=== PATIENT | female | born 1970 | race Caucasian/White ===

== ENCOUNTER 2024-03-18 12:43 | Emergency (ER) | payer BC, SELFPAY ==
[2024-03-18 12:47] VITALS: BP 133/82
--- NOTE | 2024-03-18 15:16 | ED.MUSCINJ ---
HPI-Injury
General
Chief Complaint: Musculo-Skeletal Complaint
Source: patient
Exam Limitations: none
Time Seen by Provider: 03/18/24 15:04
Nursing documentation reviewed up to this point in time: agreed with
History of Present Illness-Injury
Is this injury a work related problem?: No
Is pt an associate of [facility]/[place]?: No
Initial Injury comments:
Patient states she felt a pop in lower ant right ribs a few days ago while stretching. Pain continues to worsen. Taking ibu without improvement. Brought to ED by family for eval.
Past History
Past History
ED Past Medical History: None
ED Past Surgical History: None
Social History
Tobacco: Non-smoker
Personal:
Living: with family
Employment: Employed
Review of Systems
Review of Systems
Allergies reviewed?: Yes
All Other Systems: ROS reviewed and negative except as documented in HPI and ROS
Constitutional: Reports no symptoms
EENT: Reports no symptoms
Cardiac: Reports no symptoms
ABD/GI: Reports no symptoms
Musculoskeletal: Reports joint pain (pain to right lower ant. ribs)
Skin: Reports no symptoms
Neurological: Reports no symptoms
Psychiatric: Reports no symptoms
Musculoskeletal Injury Exam
Musculoskeletal Injury Exam
Right Lower Anterior Ribs:
Pain with Movement?: Moderate
Tender to palpation?: Moderate
Soft tissue swelling?: None
External deformity and angulation?: None
Joint effusion?: None
Contusion?: None
Hematoma-local bleeding into tissue?: None
Strain- Sprain- Tear (Connective tissue injury)?: Moderate
Crepitus with movement?: No
Joint instability?: No
Malalignment/deformity?: No
Range of motion: Limited
Distal skin color and temperature: normal-warm & good color
Capillary Refill: normal
Normal distal neurovascular exam?: Yes
Phy Exam
General Physical Exam
General Presentation: well appearing and mild distress
General age: appears stated age
General Skin: warm and dry
General Habitus: normal
General Mental: alert
Cardiovascular Exam
Cardiovascular Exam: regular rate/rhythm
Pulmonary Exam
Pulmonary Exam: lungs clear and no respiratory distress
Gastrointestinal Exam
Gastrointestinal Exam: non tender and soft
Musculoskeletal Exam
Musculoskeletal Exam: neuro vasc intact
Skin Exam
Skin Exam: normal color, warm/dry and no rash
Psychiatric Exam
Psychiatric Exam: normal mood/affect
Injury Course
Orders/Labs/Results
Orders:
Orders
03/18/24 12:55
CR Ribs-right 3 Vw W/pa Chest* Urgent
Comment:
Reason For Exam: lower anterior rib pain
03/18/24 15:11
Hydrocodone 5/APAP 325 [[place] 5/325] 1 tablet PO NOW STA
*Radiology
Radiology exam reviewed: radiology read reviewed
*Pulse Oximetry
Patient hypoxic: no
*Critical Care Note
Total Time (30-74mins, 75-104mins- exclusive of procedures): Not Applicable
ED Attending Note
-
Portions of this chart may have been created with voice recognition software.� Occasional wrong word or��sound alike� substitutions may have occurred due to the inherent limitations of voice recognition software.
Discharge Plan
Departure
Patient Disposition: Home (Routine Discharge)
Date of Disposition: 03/18/24
Time of Disposition: 15:12
Patient with high blood pressure during this ER visit?: No
Condition: Good
Covid-19: Not Applicable
Discharge Problem:
Strain of chest wall
Instructions: Ibuprofen, Using Cold for Pain, Musculoskeletal Pain
Prescriptions:
New
oxycodone 5 mg capsule
5 mg PO Q4H PRN (Reason: Pain) Qty: 12 0RF
No Action
bupropion HCl 150 MG tablet extended release 24 hr
150 mg PO DAILY
Loestrin
1 tab PO DAILY
Referrals:
Juana Nguyen CRNP [Family Provider] - Follow up in 2-3 days
Interventions
Interventions:
*General Assessment Last Done: 03/18/24 12:52
*ED COVID-19 Vaccine History Last Done: 03/18/24 12:52
Discharge Date and Time
Print Language: INDONESIAN
[2024-03-18] MEDS: NORCO 5/325 1 TABLET PO (15:45)
== END 2024-03-18 15:51 | disposition home or self-care (01) ==
LOC: EMR 12:43
PROVIDERS: EMERGENCY PHYSICIAN Emergency Medicine; FAMILY PHYSICIAN Nurse Practitioner Adult Health
DX: S29.011A Strain of muscle and tendon of front wall of thorax, initial encounter (principal); X58.XXXA Exposure to other specified factors, initial encounter
CPT/HCPCS: 99283; 71101

== ENCOUNTER 2024-05-08 02:41 | Emergency (ER) | payer BC, SELFPAY ==
[2024-05-08 02:52] VITALS: BP 106/70
--- NOTE | 2024-05-08 03:40 | EDRN ---
and pt developed severe pain at 1999. Pt tearful and holding leg up.
[2024-05-08 05:20] VITALS: BP 113/81
--- NOTE | 2024-05-08 05:25 | ED.GENMED ---
History of Present Illness
General
Chief Complaint: Post Operative Problem(s)
Source: patient
Exam Limitations: none
Time Seen by Provider: 05/08/24 04:21
Nursing documentation reviewed up to this point in time: agreed with
History of Present Illness
History of Present Illness:
53-year-old female with history as documented presents to the emergency room for evaluation of right leg pain. Patient had bunionectomy 2 weeks ago had been in a splint and then earlier today was placed in a cast. She says that immediately after
the cast was placed she was having some discomfort in the leg and that as the day went on she was having worse pain and so she came to the emergency room to be evaluated. She feels the cast is too tight. She denies any other issues. Surgery was
done by podiatry at [facility].
Past History
Past History
ED Past Medical History: None
ED Past Surgical History: None
Social History
Tobacco: Non-smoker
Personal:
Living: with family
Employment: Employed
Review of Systems
Review of Systems
All Other Systems: ROS reviewed and negative except as documented in HPI and ROS
Musculoskeletal: Reports muscle pain (Right leg pain)
Phy Exam
Physical Exam
Physical Exam:
General: Well appearing and non-toxic
HEENT: protecting airway
Neck: appears supple
CV: No evidence of cyanosis
Resp: No accessory muscle use
Abd: Non-distended
Extremities: Right lower leg is in a cast; toes are visible and they are pink, brisk capillary refill, warm and well-perfused
Neuro: Alert
Psych: Normal affect
Skin: Intact
Scores
Heart Failure Risk
Heart Failure Risk Score: Not Applicable
Heart Score for Chest Pain Patients
STEMI patient?: Not applicable
Withdrawal Assessment of Alcohol
Withdrawal Assessment Completed?: Not applicable
Course
Vital Signs
Initial and Last Documented VS:
Initial Vital Signs
Temp Pulse Resp BP Pulse Ox
36.7 C 84 22 106/70 98
05/08/24 02:52 05/08/24 02:52 05/08/24 02:52 05/08/24 02:52 05/08/24 02:52
Last Documented Vital Signs
Temp Pulse Resp BP Pulse Ox
36.7 C 84 22 106/70 98
05/08/24 02:52 05/08/24 02:52 05/08/24 02:52 05/08/24 02:52 05/08/24 02:52
Procedures
Splinting/Sling Placement
Right Lower Leg:
Procedure completed by: Lencho Robertson MD
Pre-splint extermity exam: neurovascular intact
Type of splint: posterior short leg
Splint material: fiberglass
Splint checked by provider?: Yes
Normal distal neurovascular exam?: Yes
MDM/Problems Addressed
Differential Diagnosis Includes:
cast pain
MDM/Problems Addressed:
53-year-old female who had a bunionectomy and is now in a cast that was placed earlier today presents for pain in the right leg�she feels that the cast is too tight. Vitals normal. Cast was removed here in the emergency room with immediate
resolution of her pain. No signs of vascular compromise. Placed in a splint by me. Will follow-up in the office for recasting.
*Pulse Oximetry
Patient hypoxic: no
*Critical Care Note
Total Time (30-74mins, 75-104mins- exclusive of procedures): Not Applicable
Data Reviewed
Source: patient and spouse
ED Attending Note
-
Portions of this chart may have been created with voice recognition software.� Occasional wrong word or��sound alike� substitutions may have occurred due to the inherent limitations of voice recognition software.
Discharge Plan
Departure
Patient Disposition: Home (Routine Discharge)
Date of Disposition: 05/08/24
Time of Disposition: 05:03
Patient with high blood pressure during this ER visit?: No
Discharge Problem:
Cast discomfort
Instructions: Splint Care
Prescriptions:
No Action
bupropion HCl 150 MG tablet extended release 24 hr
150 mg PO DAILY
Loestrin
1 tab PO DAILY
oxycodone 5 mg capsule
5 mg PO Q4H PRN (Reason: Pain) Qty: 12 0RF
Referrals:
Juana Nguyen CRNP [Family Provider] -
Activity Restrictions/Additional Instructions:
You should follow-up with your surgeon tomorrow as we discussed.
Thank you for visiting the Emergency Department at [facility].
1. Please schedule a follow up appointment as directed. Call first thing tomorrow morning to make an appointment.
2. If indicated, please take your medications as instructed and indicated on discharge paperwork.
3. If any of your symptoms do not improve, or persist, or become more severe within 6-12 hours, please return to the emergency department for further care.
4. Please return to the emergency department if you develop a headache, neck pain/stiffness, fever greater than 100.4F, chest pain, shortness of breath, persistent nausea, vomiting, slurred speech, difficulty walking, numbness/tingling, weakness,
signs of infection or any other symptoms that are worrisome to you.
Please call [phone] if you have any questions.
Interventions
Interventions:
*Risk Screen - Suicide Last Done: 05/08/24 02:52
*General Assessment Last Done: 05/08/24 03:32
*Neglect/Abuse Screening Last Done: 05/08/24 02:52
ED- Fall Risk Assessment Last Done: 05/08/24 03:32
*ED COVID-19 Vaccine History Last Done: 05/08/24 03:32
ED-Musculoskeletal Assessment Last Done: 05/08/24 03:32
ED-Skin Assessment Last Done: 05/08/24 03:32
Discharge Date and Time
Print Language: MACANESE
== END 2024-05-08 05:20 | disposition home or self-care (01) ==
LOC: EMR 02:41
PROVIDERS: EMERGENCY PHYSICIAN Emergency Medicine; FAMILY PHYSICIAN Nurse Practitioner Adult Health
DX: Z46.89 Encounter for fitting and adjustment of other specified devices (principal)
CPT/HCPCS: 99282; 29515

== ENCOUNTER 2024-09-20 11:53 | Emergency (ER) | payer BC, SELFPAY ==
[2024-09-20 12:01] VITALS: BP 120/88
--- NOTE | 2024-09-20 14:04 | ED.GENMED ---
History of Present Illness
General
Chief Complaint: DVT/Possible Blood Clot
Time Seen by Provider: 09/20/24 13:28
History of Present Illness
History of Present Illness:
53-year-old female presents to the emergency department for evaluation of left leg pain beginning yesterday. She is approximately 3-month status post left bunionectomy and had her cast replaced on Tuesday. Had no pain prior to that cast placement.
She is nonweightbearing at this time. Pain radiates from the left upper buttock down the posterior leg to the calf. Denies any leg swelling but feels paresthesias occasionally
Past History
Past History
ED Past Medical History: None
ED Past Surgical History: None
Social History
Tobacco: Non-smoker
Personal:
Living: with family
Employment: Employed
Review of Systems
Review of Systems
Allergies reviewed?: Yes
All Other Systems: ROS reviewed and negative except as documented in HPI and ROS
Phy Exam
Physical Exam
Physical Exam:
GEN: Well appearing, NAD, WDWN
HEENT: Oral mucosa moist, no scleral icterus
Cardiac: Regular rate
Lung: No respiratory distress, no tachypnea
MSK: No gross deformity or injuries. No lower extremity edema. There is pain with straight leg raise on the left as well as with palpation of the left upper gluteal region at the left hamstring, no skin changes
Skin: Good color, no pallor or jaundice, no rashes
Neuro: AO x3, moves all extremities freely
Psych: Calm, cooperative
Course
Orders/Labs/Results
Orders:
Orders
09/20/24 12:04
US Periph Venous LOWER Ext LT Urgent
Reason For Exam: pain, possible DVT
09/20/24 13:58
Cyclobenzaprine HCl [Flexeril] 10 mg PO NOW STA
Ketorolac [Toradol] 30 mg IM NOW STA
Vital Signs
Initial and Last Documented VS:
Initial Vital Signs
Temp Pulse Resp BP Pulse Ox
98.0 F 118 18 120/88 98
09/20/24 12:01 09/20/24 12:01 09/20/24 12:01 09/20/24 12:01 09/20/24 12:01
Last Documented Vital Signs
Temp Pulse Resp BP Pulse Ox
98.0 F 118 18 120/88 98
09/20/24 12:01 09/20/24 12:01 09/20/24 12:01 09/20/24 12:01 09/20/24 12:01
MDM/Problems Addressed
MDM/Problems Addressed:
Patient's clinical presentation is most compatible with sciatica/lumbar radiculopathy as opposed to DVT, DVT study was reassuring with the caveat of inability to visualize the calf veins due to the overlying cast. Do not feel it is needed to remove
the cast at this point. Discussed supportive care
*Critical Care Note
Total Time (30-74mins, 75-104mins- exclusive of procedures): Not Applicable
ED Attending Note
-
Portions of this chart may have been created with voice recognition software.� Occasional wrong word or��sound alike� substitutions may have occurred due to the inherent limitations of voice recognition software.
Discharge Plan
Departure
Patient Disposition: Home (Routine Discharge)
Date of Disposition: 09/20/24
Time of Disposition: 15:09
Patient with high blood pressure during this ER visit?: No
Discharge Problem:
Left sciatic nerve pain
Instructions: Radiculopathy of the neck and back (including sciatica)
Prescriptions:
New
celecoxib 200 mg capsule
200 mg PO BID Qty: 20 0RF
methocarbamol 750 mg tablet
750 - 1,500 mg PO Q8H PRN (Reason: muscle pain) Qty: 20 0RF
No Action
bupropion HCl 150 MG tablet extended release 24 hr
150 mg PO DAILY
Loestrin
1 tab PO DAILY
oxycodone 5 mg capsule
5 mg PO Q4H PRN (Reason: Pain) Qty: 12 0RF
Referrals:
Juana Nguyen CRNP [Family Provider] -
Interventions
Interventions:
*Risk Screen - Suicide Last Done: 09/20/24 12:01
*General Assessment Last Done: 09/20/24 12:01
*Neglect/Abuse Screening Last Done: 09/20/24 12:01
*Nursing Disposition Last Done: 09/20/24 15:23
Discharge Date and Time
Discharge Date/Time: 09/20/24 15:23
Print Language: QATARI
[2024-09-20] MEDS: FLEXERIL 10 MG PO (14:41)
[2024-09-20] MEDS: TORADOL 30 MG IM (14:41)
== END 2024-09-20 15:23 | disposition home or self-care (01) ==
LOC: EMR 11:53
PROVIDERS: EMERGENCY PHYSICIAN Emergency Medicine; FAMILY PHYSICIAN Nurse Practitioner Adult Health
DX: M54.32 Sciatica, left side (principal); M79.605 Pain in left leg
CPT/HCPCS: 99284; 96372; 93971

== ENCOUNTER → 2024-12-21 14:25 | Outpatient (REF) | payer BC, SELFPAY | LOC: HWRAD 14:25 | PROVIDERS: ATTENDING PHYSICIAN Podiatrist Foot & Ankle Surgery; FAMILY PHYSICIAN Nurse Practitioner Adult Health | DX: M20.12 Hallux valgus (acquired), left foot (principal); M96.0 Pseudarthrosis after fusion or arthrodesis | CPT/HCPCS: 73700 ==